=== PATIENT | female | born 1985 | race African-American/Black ===

== ENCOUNTER 2016-11-11 13:07 | Emergency (ER) | payer OTHER ==
[~2016-11-11] VITALS: Ht 160 cm; Wt 84.6 kg
[~2016-11-11 13:07] MED LIST: MOTRIN800 MG PO
[2016-11-11] MEDS ORDERED: FLEXERIL10 MG PO (14:26)
[2016-11-11] MEDS ORDERED: NAPROSYN500 MG PO (14:26)
[2016-11-11] MEDS ORDERED: LIDODERM 5% P1 PATCH TD (14:26)
[2016-11-11 15:08] VITALS: BP 114/64
== END 2016-11-11 15:09 | disposition home or self-care (01) ==
LOC: EME 13:07
DX: S39.012A Strain of muscle, fascia and tendon of lower back, initial encounter (principal); S50.01XA Contusion of right elbow, initial encounter; W01.0XXA Fall on same level from slipping, tripping and stumbling without subsequent striking against object, initial encounter
CPT/HCPCS: 72100; 99281; 99284; J1885

== ENCOUNTER 2017-04-23 14:04 | Emergency (ER) | payer OTHER ==
[~2017-04-23] VITALS: Ht 160 cm; Wt 85.3 kg
[~2017-04-23 14:04] MED LIST changes: +FLEXERIL10 MG PO; +LIDODERM 5% P1 PATCH TD; +NAPROSYN500 MG PO
[2017-04-23] MEDS ORDERED: NAPROSYN500 MG PO (17:11)
[2017-04-23] MEDS ORDERED: SKELAXIN800 MG PO (17:11)
[2017-04-23 17:36] VITALS: BP 00/0
== END 2017-04-23 17:20 | disposition home or self-care (01) ==
LOC: EME 14:04
DX: S39.012A Strain of muscle, fascia and tendon of lower back, initial encounter (principal); S29.012A Strain of muscle and tendon of back wall of thorax, initial encounter; V43.52XA Car driver injured in collision with other type car in traffic accident, initial encounter; Y92.410 Unspecified street and highway as the place of occurrence of the external cause; M41.85 Other forms of scoliosis, thoracolumbar region; Z87.891 Personal history of nicotine dependence
CPT/HCPCS: 72070; 72100; 99281; 99284

== ENCOUNTER 2017-10-04 15:27 | Emergency (ER) | payer OTHER ==
[~2017-10-04] VITALS: Ht 160 cm; Wt 82.0 kg
[~2017-10-04 15:27] MED LIST changes: +SKELAXIN800 MG PO
[2017-10-04 16:17] LABS: BASOPHIL (%) 0.4 % (0-1); EOSINOPHIL (%) 1.1 % (0-5); EOSINOPHIL COUNT 0.1 K/uL (0-0.3); HEMATOCRIT 34.8 % (36.0-46.0); IMMATURE GRANULOCYTE (%) 0.2 % (0.0-0.7); LYMPHOCYTE (%) 37.4 % (15-42); MCH 29.1 PG (29.0-34.0); MCHC 34.5 G/DL (30.0-36.0); MCV 84.5 FL (83-99); MONOCYTE (%) 5.6 % (3-12); MONOCYTE COUNT 0.3 K/uL (0-0.8); NEUTROPHIL (%) 55.3 % (45-76); NEUTROPHIL COUNT 2.9 K/uL (1.8-6.4); PLATELET COUNT 218 K/uL (156-360); RBC DIS.WIDTH-CV 14.1 % (11.8-14.6); RBC DIS.WIDTH-SD 43.6 % (39-53); RED BLOOD COUNT 4.12 M/uL (3.80-5.20); WHITE BLOOD COUNT 5.3 K/uL (4.1-10.2)
[2017-10-04 16:26] LABS: CHLORIDE 106 mEq/L (99-109); D-DIMER ELISA < 150.00 ng/mLDDU (<230); POTASSIUM 3.7 mEq/L (3.7-5.4); SODIUM 141 mEq/L (136-147)
[2017-10-04 16:27] LABS: GLUCOSE 100 mg/dL (70-99)
[2017-10-04 16:31] LABS: CREATININE 0.8 mg/dL (0.6-1.3); GFR ESTIMATE (CALCULATED) > 59 mL/min/
[2017-10-04 16:32] LABS: UREA NITROGEN (BUN) 10 mg/dL (9-23)
[2017-10-04 16:38] LABS: TROP-I INTERPRETATION NEGATIVE; TROPONIN-I < 0.01 ng/mL (0.0-0.30)
[2017-10-04 17:59] LABS: TROP-I INTERPRETATION NEGATIVE; TROPONIN-I < 0.01 ng/mL (0.0-0.30)
[2017-10-04 18:22] VITALS: BP 118/73
== END 2017-10-04 18:27 | disposition home or self-care (01) ==
LOC: EME 15:27
PROVIDERS: Emergency Medicine
DX: R07.89 Other chest pain (principal); Z87.891 Personal history of nicotine dependence
CPT/HCPCS: 71045; 80048; 84484; 85025; 85379; 93005; 99281; 99284